=== PATIENT | female | born 1960 | race Caucasian/White ===

== ENCOUNTER 2019-11-06 14:05 | Emergency (ER) | payer MEDICAID, SELFPAY ==
[2019-11-06 14:12] VITALS: BP 128/83; PULSE 99; RESP 18; TEMP 36.7; O2SAT 95; BMI 35.2
--- NOTE | 2019-11-06 14:38 | W.ED.NAVMDI ---
HPI - Nausea/Vomiting/Diarrhea General: Chief complaint: Nausea/Vomiting/Diarrhea Stated complaint: diarrhea Time Seen by Provider: 11/06/19 14:14 Source: patient Mode of arrival: ambulatory Limitations: no limitations History of Present Illness: HPI Narrative: Sadie is a very nice 59-year-old female who comes in complaining of diarrhea for the past 5 days. She describes the diarrhea as watery. She is had no blood or melena in her stools. She denies any nausea/vomiting or abdominal pain. She is not had a fever or been chilled. She denies any urinary symptoms or gynecological symptoms. Patient denies being on antibiotics recently. Patient states she is not been around anyone sick to her knowledge. She denies any other symptoms such as cough, shortness of breath, loss of sense of taste or smell. Associated nausea: No Associated symtoms: Denies change in vision, chest pain, diaphoresis, dizziness, dysuria, fatigue, headache(s), malaise, nausea, palpitations or syncope Review of Systems Const: Denies: fever(s), chills, body aches, fatigue, malaise or diaphoresis Eyes: Denies: change in vision, blurry vision, photophobia, eye discomfort, eye discharge or eye redness ENMT: Denies: throat pain, odynophagia, hoarseness, swelling of lips/tongue, ear or mastoid pain, ear discharge, change in hearing or nasal discharge Card: Denies: chest pain, palpitations, irregular heart rhythm, edema, lightheadedness, syncope, pre-syncope, dyspnea on exertion or orthopnea Resp: Denies: dyspnea, productive cough, non-productive cough, wheezing, hemoptysis or chest congestion GI: Denies: abdominal pain, nausea, vomiting, hematemesis, coffee ground emesis, heartburn, constipation, GI cramping, hematochezia or melena : Denies: flank pain, dysuria, urinary frequency, urinary urgency or hematuria Musc: Denies: neck pain, back pain, extremity pain, extremity swelling, joint pain, joint swelling, joint redness, joint warmth or joint stiffness Skin/Breast: Denies: rash, pruritus, erythema or skin tenderness Neuro: Denies: headache(s), numbness in extremities, weakness in extremities, sensory changes, lack of coordination, difficulty walking, dizziness, vertigo, confusion, Slurred speech present or seizure-like activity Rudy/Lymph: Denies: easy bruising, easy bleeding, petechiae, purpura or enlarged lymph nodes All/Imm: Denies: urticaria, throat swelling, tongue swelling, facial swelling or acute wheezing PFSH ED PFSH: Medical History (Updated 11/06/19 @ 17:29 by Michelle Meier) Anxiety Dementia Depression Hypertension Hypothyroidism Surgical History (Updated 11/06/19 @ 15:39 by Michelle Meier) H/O: hysterectomy S/P cholecystectomy Physical Exam Const: COMMON NORMALS: no acute distress, patient oriented x3, no limitations, healthy appearing and well nourished GENERAL APPEARANCE: cooperative, well kempt and well developed HENMT: COMMON NORMALS: normocephalic, atraumatic, external ears normal, EAC's normal and Normal external nose present HEAD & SCALP: normal to inspection, normocephalic and atraumatic FACE & SINUS: normal facial exam and face symmetric NOSE: Normal external nose present and Normal nares present EXTERNAL EAR: Yes external ears normal EXTERNAL AUDITORY CANAL: EAC's normal MOUTH: Normal oral and palatal mucosa present, lip normal and tongue normal Eye: COMMON NORMALS: Equal, round and reactive pupils present and conjunctivae normal GENERAL EYE: appearance normal, both eyes and all related structures ALIGNMENT: Yes alignment normal PERIORBITAL: periorbital findings normal EYELID: eyelids normal CONJUNCTIVA: Yes conjunctivae normal SCLERA: sclerae normal PUPIL: Yes Equal, round and reactive pupils present Neck/C-Spine: COMMON NORMALS: full ROM, no lymphadenopathy, supple, no meningeal signs and no JVD GENERAL: Yes normal visual inspection and Yes trachea midline Chest: COMMONS NORMALS: normal inspection of the chest and normal palpation of entire chest wall Resp: COMMON NORMALS: normal respiratory effort, No retractions, No use of accessory muscles and clear to auscultation bilaterally EFFORT & INSPECTION: Yes able to speak in complete sentences and Yes symmetric chest movement AUSCULTATION: clear to auscultation bilaterally, no crackles, no rales, no rhonchi and no wheezes Cardio: COMMON NORMALS: no JVD, regular rate, regular rhythm, S1 normal heart sound present and S2 normal heart sound present RATE: regular rate RHYTHM: regular rhythm HEART SOUNDS: S1 normal heart sound present, S2 normal heart sound present, no click, no gallops, no murmurs, no rubs and abnormal split S2 GI: COMMON NORMALS: Soft to palpation and No hepatosplenomegaly present PALPATION: Yes Soft to palpation, No Tenderness to palpation present (GI), No Guarding due to palpation present (GI), No Rigid due to palpation, Yes No hepatosplenomegaly present, No Hernia present, No Palpable mass present and No Pulsatile mass present : COMMON NORMALS: Yes no CVA tenderness BLADDER/KIDNEY EXAM: Yes no CVA tenderness EXTERNAL FEMALE EXAM: No Hernia present Back/Pelvis: COMMON NORMALS: no CVA tenderness, thoracic and lumbar spine normal to inspection, no thoracic nor lumbar tenderness and thoraco-lumbar ROM normal Extremity: COMMON NORMALS: normal to inspection, full ROM, capillary refill normal, no joint enlargement, no clubbing, cyanosis or edema and no calf tenderness Neuro: COMMON NORMALS: patient oriented x3, CN's II-XII intact bilaterally, moves all extremities, no focal motor deficits and no sensory deficits noted MENINGEAL SIGNS: Yes no meningeal signs SPEECH: speech normal Psych: COMMON NORMALS: mental status grossly normal, Normal thought process present, cooperative, normal affect, speech normal and activity/motor behavior normal APPEARANCE: Yes well kempt SPEECH: Yes normal speech THOUGHT PROCESS: Normal thought process present Skin: COMMON NORMALS: no rashes or lesions noted, turgor normal, no jaundice, no petechiae and no mottling GENERAL SKIN EXAM: no rashes or lesions noted and turgor normal Course Vital Signs: Vital signs: Vital Signs Temperature 98.0 F 11/06/19 14:12 Pulse Rate 87 11/06/19 17:46 Respiratory Rate 18 11/06/19 17:46 Blood Pressure 130/89 11/06/19 17:46 Pulse Oximetry 99 11/06/19 17:46 MDM - Nausea/Vomiting/Diarrhea MDM Narrative: Medical decision making narrative: Ashley is a very nice 59-year-old female who comes in with a complaint of diarrhea. Her work-up is been unremarkable. She is not had any diarrhea here. Risk for C. difficile is low she does not have any recent antibiotics or exposures. Of note the patient had a positive test but she has had a hysterectomy with only 1 ovary remaining. I got a quantitative level and I reviewed this with Dr. Bolivar who states the patient will need an outpatient work-up for possible ovarian cancer as an outpatient. I reviewed this with the patient and she agrees to follow-up and do so. In regards to her diarrhea I will place her on Cipro and Flagyl but she has no abdominal discomfort. I do not think there is indication to image her this evening. She agrees to return should her symptoms change or worsen but at this time she is feeling better and would like to be discharged Lab Data: Attestation: I reviewed the patient's lab results. Labs: Lab Results 11/06/19 11/06/19 11/06/19 Range/Units 15:02 15:02 15:02 WBC 6.4 (4.0-10.0) 10^3/ uL RBC 4.76 (4.1-5.3) 10^6/u L Hgb 13.4 (11.5-15.3) g/dL Hct 41.5 (37.0-47.0) % MCV 87.2 (81-99) fL MCH 28.2 (28.0-34.0) pg MCHC 32.3 (30.0-36.0) g/dL RDW 13.6 (12.1-15.1) % Plt Count 209 (130-400) 10^3/c mm MPV 10.3 (7.4-10.4) fL Neut % (Auto) 46.4 % Lymph % (Auto) 37.3 % [place] % (Auto) 14.1 % Eos % (Auto) 1.1 % Baso % (Auto) 0.8 % Neut # (Auto) 2.97 (1.8-7.7) 10^3/u L Lymph # (Auto) 2.4 (0.8-4.8) 10^3/u L [place] # (Auto) 0.9 (0.2-0.9) 10^3/u L Eos # (Auto) 0.1 (0.0-0.8) 10^3/u L Baso # (Auto) 0.1 (0.0-0.1) 10^3/u L Nucleated RBC % (a uto) 0 % Nucleated RBCs # 0.0 /100WBC Sodium 138 (136-145) mmol/L Potassium 4.0 (3.5-5.1) mmol/L Chloride 102 (98-107) mmol/L Carbon Dioxide 24 (22-29) mmol/L Anion Gap 16.0 (5-19) BUN 17 (6-20) mg/dL Creatinine 1.1 H (0.5-0.9) mg/dL GFR Calculation 51.0 L (90-130) mL/min Glucose 107 (65-115) mg/dL Calculated Osmolal ity 283 L (285-295) mOsm/k g Calcium 9.5 (8.5-10.5) mg/dL Total Bilirubin 0.3 (0.15-1.2) mg/dL AST 35 H (0-32) U/L ALT 27 (0-33) U/L Alkaline Phosphata se 80 (35-105) IU/L Total Protein 7.9 (6.6-8.7) g/dL Albumin 4.5 (3.5-5.2) g/dL Globulin 3.4 (1.3-4.6) g/dL Lipase 18 (13-60) U/L HCG, Qual Positive H (Negative) Ser , Kiara i-Qnt mIU/mL Urine Color (Yellow) Urine Appearance (CLEAR) Urine pH (5-7) Ur Specific Gravit y (1.005-1.030) Urine Protein (Negative) Urine Glucose (UA) (Normal) Urine Ketones (Negative) Urine Blood (Negative) Urine Nitrate (Negative) Urine Bilirubin (NEGATIVE) Urine Urobilinogen (Negative) mg/dL Ur Leukocyte Kate ase (Negative) Urine RBC (0-2) /hpf Urine WBC (0-5) /hpf Ur Squamous Epith Cells (0-5) Amorphous Sediment Urine Bacteria (NONE) Urine Mucus 11/06/19 11/06/19 Range/Units 15:02 15:40 WBC (4.0-10.0) 10^3/ uL RBC (4.1-5.3) 10^6/u L Hgb (11.5-15.3) g/dL Hct (37.0-47.0) % MCV (81-99) fL MCH (28.0-34.0) pg MCHC (30.0-36.0) g/dL RDW (12.1-15.1) % Plt Count (130-400) 10^3/c mm MPV (7.4-10.4) fL Neut % (Auto) % Lymph % (Auto) % [place] % (Auto) % Eos % (Auto) % Baso % (Auto) % Neut # (Auto) (1.8-7.7) 10^3/u L Lymph # (Auto) (0.8-4.8) 10^3/u L [place] # (Auto) (0.2-0.9) 10^3/u L Eos # (Auto) (0.0-0.8) 10^3/u L Baso # (Auto) (0.0-0.1) 10^3/u L Nucleated RBC % (a uto) % Nucleated RBCs # /100WBC Sodium (136-145) mmol/L Potassium (3.5-5.1) mmol/L Chloride (98-107) mmol/L Carbon Dioxide (22-29) mmol/L Anion Gap (5-19) BUN (6-20) mg/dL Creatinine (0.5-0.9) mg/dL GFR Calculation (90-130) mL/min Glucose (65-115) mg/dL Calculated Osmolal ity (285-295) mOsm/k g Calcium (8.5-10.5) mg/dL Total Bilirubin (0.15-1.2) mg/dL AST (0-32) U/L ALT (0-33) U/L Alkaline Phosphata se (35-105) IU/L Total Protein (6.6-8.7) g/dL Albumin (3.5-5.2) g/dL Globulin (1.3-4.6) g/dL Lipase (13-60) U/L HCG, Qual (Negative) Ser , Kiara i-Qnt 11.39 mIU/mL Urine Color Yellow (Yellow) Urine Appearance Sl cloudy A (CLEAR) Urine pH 5 (5-7) Ur Specific Gravit y 1.020 (1.005-1.030) Urine Protein Neg (Negative) Urine Glucose (UA) Norm (Normal) Urine Ketones 1+ H (Negative) Urine Blood Neg (Negative) Urine Nitrate Negative (Negative) Urine Bilirubin 1+ H (NEGATIVE) Urine Urobilinogen 1 H (Negative) mg/dL Ur Leukocyte Kate ase Negative (Negative) Urine RBC None (0-2) /hpf Urine WBC 0-4 H (0-5) /hpf Ur Squamous Epith Cells 15-25 H (0-5) Amorphous Sediment Not Reportable Urine Bacteria 1+ H (NONE) Urine Mucus 3+ Discharge Plan Discharge Patient Disposition: Home Clinical Impression: Diarrhea Qualifiers: Diarrhea type: unspecified type Qualified Code(s): R19.7 - Diarrhea, unspecified Condition: Stable Prescriptions: New Cipro 500 mg tablet 500 mg PO BID Qty: 20 RF: 0 Flagyl 500 mg tablet 500 mg PO Q8H 10 Days Qty: 30 RF: 0 dicyclomine 10 mg capsule 10 mg PO QID Qty: 30 RF: 0 No Action tizanidine 4 mg Tablet 4 mg PO Q6H PRN (Reason: Pain) RF: 0 doxepin 25 mg Capsule 25 mg PO BEDTIME PRN (Reason: unknown) RF: 0 Mobic 15 mg Tablet 15 mg PO DAILY RF: 0 lisinopril 20 mg Tablet 20 mg PO BID RF: 0 hydroxyzine pamoate 50 mg Capsule 50 mg PO TID PRN (Reason: unknown) RF: 0 levothyroxine 25 mcg Tablet 25 mcg PO DAILY RF: 0 prazosin 5 mg Capsule 10 mg PO BEDTIME RF: 0 propranolol 10 mg Tablet 10 mg PO BID RF: 0 pantoprazole 40 mg Tablet,Delayed Release (Dr/Ec) 40 mg PO DAILY RF: 0 lidocaine 5 % Adhesive Patch,Medicated 1 patch TOPICAL DAILY RF: 0 ProAir HFA 90 mcg/actuation Hfa Aerosol Inhaler 2 puff INHALATION Q4H PRN (Reason: Shortness Of Breath) RF: 0 memantine 10 mg Tablet 10 mg PO BID RF: 0 Cymbalta 60 mg Capsule,Delayed Release(Dr/Ec) 60 mg PO BID RF: 0 Oysco 500/D 500 mg(1,250mg) -200 unit Tablet 1 tab PO BID RF: 0 Imodium A-D 1 mg/7.5 mL Liquid 1 mg PO PRN RF: 0 Lyrica 150 mg Capsule 150 mg PO BID RF: 0 Symbicort 160-4.5 mcg/actuation Hfa Aerosol Inhaler 2 puff INHALATION BID RF: 0 Discharge Orders: Discharge Order (Routine); Ordered 11/06/19 Ordered By: Michelle Meier Referrals: Melchor Lebron MD [Physician] - 1-3 days Discharge Diet: Advance as tolerated and Clear Liquid Discharge Activity: Resume usual activity Patient Instructions: Diarrhea - Adult Activity Restrictions/Additional Instructions: Please return to the ER immediately for any of the signs or symptoms listed on your discharge instruction sheets, worsening/changing of your symptoms, you are not getting better as quickly as expected, or for ANY other cause or concerns. Follow a clear liquid diet and advance it as tolerated back to your normal diet. Return to the ER for pain, fever, vomiting or for any other cause for concern. Be certain to follow-up with Dr. Lebron for recheck of your elevated hormone to rule out a tumor as a cause for this finding. Discharge Date/Time: 11/06/19 17:46 Coding Level of Care Code ED Brass Polisher for Charles Fwd Exam Comprehensive
[2019-11-06 15:08] LABS: Basophils # 0.1 10^3/uL (0.0-0.1); Basophils % 0.8 %; Eosinophils # 0.1 10^3/uL (0.0-0.8); Eosinophils % 1.1 %; Hematocrit 41.5 % (37.0-47.0); Hemoglobin 13.4 g/dL (11.5-15.3); Lymphocytes # 2.4 10^3/uL (0.8-4.8); Lymphocytes % 37.3 %; Mean Corpuscular HGB Conc 32.3 g/dL (30.0-36.0); Mean Corpuscular Hemoglobin 28.2 pg (28.0-34.0); Mean Corpuscular Volume 87.2 fL (81-99); Mean Platelet Volume 10.3 fL (7.4-10.4); Monocytes # 0.9 10^3/uL (0.2-0.9); Monocytes % 14.1 %; Neutrophils # 2.97 10^3/uL (1.8-7.7); Neutrophils % 46.4 %; Nucleated Red Blood Cells % 0 %; Platelet Count 209 10^3/cmm (130-400); Red Blood Count 4.76 10^6/uL (4.1-5.3); Red Cell Distribution Width 13.6 % (12.1-15.1); White Blood Count 6.4 10^3/uL (4.0-10.0)
[2019-11-06 15:24] LABS: HCG, Serum Qual Positive (Negative)
[2019-11-06 15:27] LABS: Alanine Aminotransferase 27 U/L (0-33); Albumin Level 4.5 g/dL (3.5-5.2); Alkaline Phosphatase 80 IU/L (35-105); Aspartate Amino Transferase 35 U/L (0-32); Blood Urea Nitrogen 17 mg/dL (6-20); Calcium 9.5 mg/dL (8.5-10.5); Carbon Dioxide 24 mmol/L (22-29); Chloride 102 mmol/L (98-107); Globulin 3.4 g/dL (1.3-4.6); Glucose 107 mg/dL (65-115); Lipase 18 U/L (13-60); Osmolality Calculated 283 mOsm/kg (285-295); Sodium 138 mmol/L (136-145); Total Bilirubin 0.3 mg/dL (0.15-1.2); Total Protein 7.9 g/dL (6.6-8.7)
[2019-11-06 16:03] LABS: HCG Quantitative 11.39 mIU/mL
[2019-11-06 16:20] LABS: Bilirubin Urine 1+ (NEGATIVE); Blood Urine Neg (Negative); Glucose Urine UA Norm (Normal); Ketones Urine 1+ (Negative); Leukocyte Esterase Urine Negative (Negative); Nitrate Urine Negative (Negative); Protein Urine Neg (Negative); Squamous Epithelial Cell Urine 15-25 (0-5); Urine Color Yellow (Yellow); Urobilinogen Urine 1 mg/dL (Negative); WBC Urine 0-4 /hpf (0-5); pH Urine 5 (5-7)
[2019-11-06 16:21] LABS: Add Urine Culture? No; Bacteria Urine 1+; Mucus Urine 3+
[2019-11-06 17:46] VITALS: BP 130/89; PULSE 87; RESP 18; O2SAT 99
== END 2019-11-06 17:46 | disposition home or self-care (01) ==
PROVIDERS: Emergency Provider Emergency Medicine
DX: R19.7 Diarrhea, unspecified (principal); F03.90 Unspecified dementia, unspecified severity, without behavioral disturbance, psychotic disturbance, mood disturbance, and anxiety; I10 Essential (primary) hypertension
CPT/HCPCS: 12345; 36415; 80053; 81001; 83690; 84702; 84703; 85025; 87493; 99282

== ENCOUNTER → 2019-11-10 09:50 | Outpatient (BNVA) | payer MEDICAID, SELFPAY | PROVIDERS: Visit Provider Obstetrics & Gynecology | DX: E34.9 Endocrine disorder, unspecified (principal); R10.2 Pelvic and perineal pain; Z90.710 Acquired absence of both cervix and uterus | CPT/HCPCS: 76830; 81000; 81025; 83001; 83002; 84702 ==